=== PATIENT | female | born 1980 | race Caucasian/White ===

== ENCOUNTER 2020-09-17 18:24 | Emergency (ER) | payer OTHER ==
[~2020-09-17] VITALS: Ht 160 cm; Wt 74.8 kg
[2020-09-17 18:50] VITALS: BP 156/78
--- NOTE | 2020-09-17 19:40 | NUR ---
Nga lenz in [facility] - 09/17/20 at 2034 by MEDSaadJ NO NURSING CARE PROVIDED BY NURSING STAFF.
--- NOTE | 2020-09-17 19:46 | NUR ---
NO NURSING CARE PROVIDED BY NURSING STAFF. Patient discharged with v/s stable. Written and verbal after care instructions given and explained. Patient alert, oriented and verbalized understanding of instructions. Ambulatory with steady gait. All questions addressed prior to discharge. ID band removed. Patient advised to follow up with PMD. Rx of PROMETHEZINE, ALBUTEROL, AND NAPROSYN given. Patient educated on indication of medication including possible reaction and side effects. Opportunity to ask questions provided and answered.
== END 2020-09-17 19:46 | disposition home or self-care (01) ==
LOC: MED 18:24
DX: U07.1 COVID-19 (principal); R05 Cough; R50.9 Fever, unspecified
CPT/HCPCS: 99283

== ENCOUNTER 2020-10-12 16:00 | Emergency (ER) | payer OTHER ==
[~2020-10-12] VITALS: Ht 160 cm; Wt 74.8 kg
[2020-10-12 16:23] VITALS: BP 110/77
[2020-10-12 17:25] VITALS: BP 110/77
== END 2020-10-12 17:25 | disposition home or self-care (01) ==
LOC: MED 16:00
DX: R07.89 Other chest pain (principal); R05 Cough
CPT/HCPCS: 71045; 93005; 99283